=== PATIENT | female | born 1950 | race Caucasian/White ===

== ENCOUNTER 2018-12-26 09:47 | Day surgery (SDC) ==
--- NOTE | 2018-12-20 08:21 | EKG Report ---
Test Performed on : 12/20/2018 07:58:46 AM Test Reason : PAT Blood Pressure : / mmHG Vent. Rate : 085 BPM Atrial Rate : 085 BPM P-R Int : 152 ms QRS Dur : 086 ms QT Int : 380 ms P-R-T Axes : 054 008 047 degrees QTc Int : 452 ms Normal sinus rhythm. Possible Left atrial enlargement Borderline ECG When compared with ECG of 01-FEB-2018 08:08, Left bundle branch block is no longer present Confirmed by Diana Monk MD ([id number]) on 12/20/2018 12:02:47 PM
[2018-12-20 08:31] LABS: URINE SOURCE CLEAN CATCH
[2018-12-20 09:15] LABS: BASO# 0.07 X1000 (0.0-0.2); BASO% 1.1 % (0.0-0.8); EOS# 0.39 X1000 (0.0-0.7); EOS% 6.4 % (0.0-10.0); HEMATOCRIT 40.1 % (37.0-47.0); HEMOGLOBIN 13.6 g/dL (12.0-16.0); LYMPH# 1.61 X1000 (1.2-3.4); LYMPH% 26.4 % (20.5-51.1); MCH 29.8 PG (27-31); MCHC 33.9 g/dL (33-37); MCV 87.7 FL (81-99); MONO# 0.47 X1000 (0.11-0.59); MONO% 7.7 % (1.7-9.3); MPV 10.7 FL (7.4-10.4); NEUT# 3.57 X1000 (1.4-6.5); NEUT% 58.4 % (42.2-75.2); PLT 290 X1000 (130-400); RBC 4.57 XMIL (4.2-5.4); RDW 13.2 % (11.5-14.5); WBC 6.11 X1000 (4.8-10.8)
[2018-12-20 09:17] LABS: BILIRUBIN URINE NEGATIVE (NEGATIVE); BLOOD URINE NEGATIVE (NEGATIVE); COLOR YELLOW; GLUCOSE URINE NEGATIVE (NEGATIVE); KETONE URINE NEGATIVE (NEGATIVE); LEUKOCYTES URINE SMALL (NEGATIVE); NITRITE URINE NEGATIVE (NEGATIVE); PROTEIN URINE NEGATIVE (NEGATIVE); SP GRAVITY URINE 1.011; TURBIDITY URINE CLEAR (CLEAR); UROBILINOGEN URINE NORMAL (NORMAL)
[2018-12-20 09:22] LABS: UR EPITHELIAL CELLS <10 /HPF (<10); URINE BACTERIA NEGATIVE /HPF; URINE RBC <10 /HPF (<10); URINE WBC <10 /HPF (<10)
[2018-12-20 09:23] LABS: PROTIME 13.3 Seconds (11.0-16.0)
[2018-12-20 09:28] LABS: HEMOGLOBIN A1C 5.3 % (4.8-6.0)
[2018-12-20 09:32] LABS: AGAP 13; BUN 10 mg/dL (8-22); CALCIUM 9.7 mg/dL (8.8-10.2); CHLORIDE 99 mmol/L (98-107); COSMO 273; CREATININE 0.7 mg/dL (0.5-0.9); ESTIMATED GFR > 60; GLUCOSE 68 mg/dL (70-104); POTASSIUM 4.3 mmol/L (3.5-5.1); SODIUM 138 mmol/L (136-145); TCO2 26 mmol/L (25-35)
[~2018-12-26 09:47] MED LIST: SYNTHROID PO SCH
[2018-12-26] MEDS ORDERED: COLACE ONE (10:29)
[2018-12-26] MEDS ORDERED: PEPCID ONE (10:29)
[2018-12-26] MEDS ORDERED: REGLAN ONE (10:29)
[2018-12-26] MEDS ORDERED: KEFZOL 1 GM/D5W 2 GM/100 ML IVPB ONE (10:30)
[2018-12-26] MEDS ORDERED: CELEBREX ONE (10:30)
[2018-12-26] MEDS ORDERED: LR 1,000 ML ONE (10:30)
[2018-12-26] MEDS ORDERED: LYRICA ONE (10:30)
[2018-12-26] MEDS ORDERED: XYLOCAINE-MPF 2% ONE (11:01)
[2018-12-26] MEDS ORDERED: DIPRIVAN 1% ONE (11:01)
[2018-12-26] MEDS ORDERED: ROBINUL ONE (11:01)
[2018-12-26] MEDS ORDERED: VERSED ONE (11:02)
[2018-12-26] MEDS ORDERED: FENTANYL ONE (11:03)
[2018-12-26] MEDS ORDERED: SODIUM CHLORIDE 0.9% ONE (12:30)
[2018-12-26] MEDS ORDERED: VANCOMYCIN ONE (12:30)
[2018-12-26] MEDS ORDERED: TORADOL ONE ×2 (12:30→13:07)
[2018-12-26] MEDS ORDERED: DURAMORPH ONE (12:30)
[2018-12-26] MEDS ORDERED: CYKLOKAPRON 1,000 MG/NS 1,000 MG/100 ML IVPB ONE ×2 (12:30→12:31)
[2018-12-26] MEDS ORDERED: MARCAINE 0.25% PF ONE (12:30)
[2018-12-26] MEDS ORDERED: NEOSPORIN G.U. IRRIGANT ONE (12:31)
[2018-12-26] MEDS ORDERED: EXPAREL 1.3% ONE (12:31)
[2018-12-26] MEDS ORDERED: ZOFRAN ONE (13:07)
[2018-12-26] MEDS ORDERED: OFIRMEV 1000 MG/ISOTONIC SOLN 1,000 MG/100 ML BOTTLE ONE (13:07)
[2018-12-26] MEDS ORDERED: DECADRON ONE (13:07)
[2018-12-26 14:03] LABS: URINE SOURCE CATH
[2018-12-26 14:15] LABS: BILIRUBIN URINE NEGATIVE (NEGATIVE); BLOOD URINE NEGATIVE (NEGATIVE); COLOR YELLOW; GLUCOSE URINE NEGATIVE (NEGATIVE); KETONE URINE TRACE mg/dL (NEGATIVE); LEUKOCYTES URINE NEGATIVE (NEGATIVE); NITRITE URINE NEGATIVE (NEGATIVE); PROTEIN URINE NEGATIVE (NEGATIVE); SP GRAVITY URINE 1.016; TURBIDITY URINE CLEAR (CLEAR); UROBILINOGEN URINE NORMAL (NORMAL)
[2018-12-26 14:19] LABS: UR EPITHELIAL CELLS <10 /HPF (<10); URINE BACTERIA NEGATIVE /HPF; URINE RBC <10 /HPF (<10); URINE WBC <10 /HPF (<10)
--- NOTE | 2018-12-26 14:59 | OPERATIVE NOTE ---
PROCEDURE DATE: 12/26/2018 PREOPERATIVE DIAGNOSIS: Degenerative joint disease, right knee. POSTOPERATIVE DIAGNOSIS: Degenerative joint disease, right knee. PROCEDURE: Right total knee replacement. SURGEON: Terrie Graff MD [employer] SUPERVISOR: ELENA Hooker. Mr. Short was necessary for proper retraction and manipulation of the leg. ANESTHESIA: Spinal. COMPLICATION: None. PROCEDURE IN DETAIL: This 68-year-old female presents for right total knee replacement. Risks, benefits, and no guarantees were discussed, and the patient was willing to proceed. She was taken to the operating room and satisfactory anesthesia obtained. The right leg was prepped and draped in the usual sterile fashion. A time-out was taken to confirm operative site, procedure, and patient. The leg was wrapped with an Esmarch and tourniquet inflated to 350 mmHg. A midline incision was made over the front of the knee followed by a quadriceps-tendon sparing arthrotomy. The patella was everted and resurfaced with freehand technique and subluxed laterally. The knee was flexed and an intramedullary hole made in the distal femur and the distal femoral cutting block secured in 5 degrees of valgus with intramedullary alignment. Distal femoral resection was made at 10 mm off the distal femur and the femur sized to a DePuy Attune size 5 implant. The 4-in- 1 block was secured and the anterior, posterior, and chamfer cuts sequentially made. Due to the valgus deformity of the knee, a posterior stabilized design was utilized and a notch created for the PCL stabilized design using the provided notch guide. Any remaining osteophytes were debrided off the femur. The knee was flexed and a PCL retractor placed behind the tibia to protect the neurovascular bundle. The tibial cutting block was secured with extramedullary alignment and the tibial resection made. Flexion and extension gaps were roughly equal with a 6 mm spacer after a slight release of the IT band. The tibia was sized to a size 4 tibial tray. A trial reduction revealed good range of motion and stability with the implants. The patella was sized to a 35 medialized dome patella. The lug holes were placed for the patellar implant and femoral implant and the trial components removed. The bony surfaces were thoroughly irrigated with pulsatile lavage. Cement with 1 g of vancomycin was then utilized. A DePuy size 4 rotating platform tibial tray, followed by a size 5 right narrow posterior stabilized femoral component and a 35 medialized dome patella. After curing the cement, the excess cement was removed and the joint capsule injected with Exparel for pain management. A Hemovac drain was placed through the lateral retinaculum. The arthrotomy was then copiously irrigated with irrigant. The size 6mm thick rotating platform polyethylene bearing was inserted in the tibial tray and the knee reduced. Final range of motion was assessed with 0 to 120 degrees and midline patellar tracking. After thorough irrigation with irrigant, it was closed over the drain with #1 Vicryl in the arthrotomy, 2-0 Vicryl in the subcutaneous, and skin sophia on the skin. Sterile dressings were applied and the tourniquet released with good return of capillary blood flow. The patient was recovered from anesthesia and transferred to the recovery room in stable condition. No intraoperative complications were noted. Instrument count and sponge count was correct at the time of closure. cc: Allan Graff MD MTDD
[2018-12-26] MEDS ORDERED: NS 1,000 ML ONE (15:10)
[2018-12-26] MEDS ORDERED: ZOFRAN IV PRN (15:15)
[2018-12-26] MEDS ORDERED: ZOFRAN ODT PO PRN (15:15)
[2018-12-26] MEDS ORDERED: MORPHINE IV PRN ×3 (15:15)
[2018-12-26] MEDS ORDERED: OXY IR PO PRN ×2 (15:15)
--- NOTE | 2018-12-26 15:30 | Diag Imaging Result Doc PS360 ---
KNEE 1-2 VIEWS-RIGHT - 12/26/2018 INDICATION: post op TECHNIQUE: Two views COMPARISON: None FINDINGS: There has been right total knee arthroplasty. Alignment is anatomic. No hardware fracture or loosening. IMPRESSION: No complication. Electronically signed by Shahab Bonilla 12/26/2018 3:28 PM
--- NOTE | 2018-12-26 15:37 | ORTHOPAEDICS PROGRESS NOTE ---
DATE: 12/26/2018 Ms. Holley is seen status post total knee replacement. At the present time, she is afebrile with stable vital signs. Her bandage is clean and dry. Her spinal is still in effect, so I was unable to perform the neuromotor exam. We will plan on mobilizing her later. She can be discharged when she is mobilizing well. cc: Allan Graff MD
[2018-12-26] MEDS: ULTRAM PO SCH ×2 (16:40→21:36)
[2018-12-26] MEDS: NS 1,000 ML IV SCH (16:41)
[2018-12-26] MEDS: TYLENOL PO SCH (18:29)
[2018-12-26] MEDS ORDERED: LIPITOR PO SCH (19:00)
[2018-12-26] MEDS: KEFZOL 2 GM/D5W 2 GM/50 ML IVPB IV SCH (21:34)
[2018-12-26] MEDS: PERIDEX MT SCH (21:35)
[2018-12-26] MEDS: COLACE PO SCH (21:36)
[2018-12-26] MEDS: CELEBREX PO SCH (21:37)
[2018-12-27] MEDS: KEFZOL 2 GM/D5W 2 GM/50 ML IVPB IV SCH (04:01)
[2018-12-27] MEDS: TYLENOL PO SCH ×2 (04:02→09:55)
[2018-12-27] MEDS: ULTRAM PO SCH ×2 (04:02→09:56)
[2018-12-27] MEDS: NS 1,000 ML IV SCH (04:04)
[2018-12-27 05:52] LABS: HEMATOCRIT 34.9 % (37.0-47.0); HEMOGLOBIN 11.9 g/dL (12.0-16.0)
[2018-12-27 06:09] LABS: AGAP 11; BUN 9 mg/dL (8-22); CALCIUM 8.4 mg/dL (8.8-10.2); CHLORIDE 104 mmol/L (98-107); COSMO 277; CREATININE 0.7 mg/dL (0.5-0.9); ESTIMATED GFR > 60; GLUCOSE 148 mg/dL (70-104); POTASSIUM 4.2 mmol/L (3.5-5.1); SODIUM 138 mmol/L (136-145); TCO2 23 mmol/L (25-35)
[2018-12-27] MEDS ORDERED: SYNTHROID PO SCH (07:00)
[2018-12-27 07:27] VITALS: BP 124/66
--- NOTE | 2018-12-27 08:43 | ORTHOPAEDICS PROGRESS NOTE ---
DATE: 12/27/2018 SUBJECTIVE: Ms. Holley is seen status post total knee replacement. At the present time, she is afebrile with stable vital signs. She is motor and sensory intact. There are no signs of infection or DVT. We will plan on mobilizing her today. She can be discharged home for outpatient followup. I will see her back in roughly 10 days. She is to continue with all her regular medicines. She will receive outpatient therapy. We will see her back in 10 days for staple removal. She is discharged home with Bactrim for antibacterial prophylaxis, aspirin for DVT prophylaxis, Wetmore as needed for pain. cc: Allan Graff MD
[2018-12-27] MEDS ORDERED: TOPROL XL PO SCH (09:00)
[2018-12-27] MEDS ORDERED: PEPCID PO SCH (09:00)
[2018-12-27] MEDS ORDERED: CALTRATE 600 + D PO SCH (09:00)
[2018-12-27] MEDS ORDERED: ASPIRIN PO SCH (09:00)
[2018-12-27] MEDS ORDERED: VICON-C PO SCH (09:00)
[2018-12-27] MEDS: COLACE PO SCH (09:56)
[2018-12-27] MEDS: PERIDEX MT SCH (09:57)
[2018-12-27] MEDS: CELEBREX PO SCH (10:04)
[2018-12-27] MEDS ORDERED: LIPITOR PO SCH (12:00)
[2018-12-28] MEDS ORDERED: SYNTHROID PO SCH (07:00)
== END 2018-12-27 12:55 | disposition home or self-care (01) ==
LOC: 4N 09:47 → OR 09:47
PROVIDERS: ATTEND Orthopaedic Surgery Adult Reconstructive Orthopaedic Surgery